=== PATIENT | male | born 1960 | race Caucasian/White ===

== ENCOUNTER → 2021-04-26 02:48 | Outpatient (CLI) | payer BC, SELFPAY ==
[2021-04-26 20:44] LABS: SARS-CoV-2 RNA PCR Negative
== END ==
PROVIDERS: PCP Family Medicine; Visit Provider Family Medicine
DX: Z20.822 Contact with and (suspected) exposure to COVID-19 (principal); R53.83 Other fatigue
CPT/HCPCS: C9803; U0003; U0005

== ENCOUNTER 2021-10-16 09:28 | Outpatient (CLI) | payer BC, SELFPAY ==
--- NOTE | ~2021-10-16 | XR_ITS ---
EXAMINATION: XR shoulder RT min 2V EXAM DATE: 10/16/2021 09:47 INDICATION: Right arm pain from throwing football. TECHNIQUE: The following right shoulder projections obtained: frontal projection with internal rotati on, frontal projection with external rotation, Grashey, and axillary (4+ views). There is no prior s tudy for comparison. FINDINGS: No evidence of right shoulder rotator cuff calcific tendinosis. There is mild glenohumer al joint, mild to moderate acromioclavicular joint primary osteoarthritis. There are no acute fractur es or dislocations identified. There is no subcutaneous gas. The soft tissue is unremarkable. Bayron rnotomy wires. IMPRESSION: Mild right glenohumeral, mild to moderate acromioclavicular osteoarthritis. Reviewed, dictated and finalized at location B. [employer] IMPRESSION: Mild right glenohumeral, mild to moderate acromioclavicular osteoar thritis.
== END 2021-10-16 09:29 | disposition home or self-care (01) ==
PROVIDERS: PCP Family Medicine; Visit Provider Family Medicine
DX: M25.511 Pain in right shoulder (principal); G89.29 Other chronic pain; M19.011 Primary osteoarthritis, right shoulder
CPT/HCPCS: 73030

== ENCOUNTER 2023-06-02 00:34 | Day surgery (SDC) | payer BC, SELFPAY ==
[2023-05-26 14:17] VITALS: BMI 31.4
[2023-06-02 12:54] VITALS: BP 116/96; PULSE 90; RESP 18; TEMP 35.8; O2SAT 97
--- NOTE | 2023-06-02 13:10 | WPDANESEPPF ---
Anes - Initial Pre Proc Eval Procedure: Operation Date: 06/02/23 14:00 Proposed Procedures p Colonoscopy - Ryan Singh MD Date/Time: 06/02/23 13:10 Surgeon: Ryan Singh MD Pre Op Diagnosis: hx of colon polyps Patient Data Age: 62 Gender: M Height: 1.7 m Weight: 84.4 kg Last Vital Signs Temp 96.4 F L 06/02/23 12:54 Pulse 90 06/02/23 12:54 Resp 18 06/02/23 12:54 BP 116/96 H 06/02/23 12:54 Pulse Ox 97 06/02/23 12:54 O2 Del Method Room Air 06/02/23 12:54 Allergies Allergy/AdvReac Type Severity Reaction Status Date / Time No Known Allergies Allergy Verified 06/02/23 12:51 Home Medications Medication Instructions Recorded Confirmed Type aspirin 81 mg tablet,delayed 81 mg PO DAILY 07/14/19 06/02/23 History release (Adult Low Dose Aspirin) nitroglycerin 400 mcg/spray 1 spray sublingual Q5M PRN chest 05/10/21 06/02/23 Rx translingual aerosol pain #4.1 grams rosuvastatin 40 mg tablet 40 mg PO DAILY 10/31/21 06/02/23 History bupropion HCl 150 mg 24 hr tablet, 150 mg PO QAM #90 tabs 07/01/22 06/02/23 Rx extended release finasteride 5 mg tablet 5 mg PO DAILY #90 tabs 07/01/22 06/02/23 Rx meloxicam 15 mg tablet 15 mg PO DAILY PRN pain #90 tabs 07/01/22 06/02/23 Rx metoprolol tartrate 25 mg tablet 25 mg PO BID #180 tabs 07/01/22 06/02/23 Rx fluticasone propionate 50 1 spray intranasal BID #48 grams 07/15/22 06/02/23 Rx mcg/actuation nasal spray,suspension (Flonase Allergy Relief) Patient hx anesthesia problems: none Family hx anesthesia problems: none Results Review: All pre-operative results and documents have been reviewed as part of the pre-operative evaluation. [facility] Past Medical History Medical History (Updated 03/06/23 @ 12:29 by Gerard Cano MD) BMI 32.0-32.9,adult Chronic pain in right shoulder (~08/2021) Fatigue Heart attack Heart disease Obesity (BMI 30.0-34.9) Seborrheic keratosis (~2021) right midback 0.3 x 0.6 cm Surgical History Surgical History History of heart bypass surgery Family History Family History Mother Cancer Grandparent Family history of liver disease, Onset Age: 61 Family history of arthritis, Onset Age: 78 Family history of malignant neoplasm Father Family history of chronic obstructive pulmonary disease, Onset Age: 67 Social History Social History (Updated 07/15/22 @ 09:29 by Victorina Munoz MA) Smoking status: Never smoker Alcohol intake: current Alcohol use details: rare use Substance use: never Substance use type: does not use Lack of Transportation: No Lack of Food: Never True Current Housing: I Have Housing Concerned About Future Housing: No Difficulty Paying Gas/Electric Bills: No Difficulty Paying for Meds: No Currently Unemployed: No Education: High School Diploma/GED Difficulty w/ Childcare or Family Care: No Living arrangements: alone Occupation/Education: occupation Additional occupation/education comments: Gate Person Gender identity (if verbalized by the patient): Male Spiritual care concerns: No Anes - Eval Final PreProcedure Day of Procedure 06/02/23 13:10 Patient weight: normal Heart: regular rate and rhythm Lungs: clear to auscultation Airway: Mallampati scale class II Neurological: alert and oriented Last oral intake: >/= 8 hours ASA classification: III Emergent: no Anesthetic plan: proceed Anesthesia type and monitoring: general GIVS and standard monitoring Results Review: All pre-operative results and documents have been reviewed as part of the pre-operative evaluation. Informed Consent: The patient's anesthetic plan and its attendant risks and benefits were discussed with the patient/family/POA. Questions were solicited and answers provided to the satisfaction of the patient/family/POA.
[2023-06-02] MEDS: LACTATED RINGERS 1,000 ML 150 ML IV CONT (13:13)
--- NOTE | 2023-06-02 13:35 | PM.HPGS ---
History of Present Illness History of Present Illness Consent: Risks, benefits, and alternatives have been discussed and questions answered. Patient agrees to proceed with procedure. Chief complaint: hx of colon polyps Narrative: Herberth Morley is a 62 year old male Presents for screening colonoscopy. Patient's current weight appetite and bowel movements are normal. Patient denies abdominal pain. He has had no bleeding. Family history noncontributory. Patient had this colon polyp 9 years ago. Most recent colonoscopy 2017 was unremarkable. Review of Systems Review of Systems: Review of systems noncontributory. [facility] Past Medical History Medical History (Updated 03/06/23 @ 12:29 by Gerard Cano MD) BMI 32.0-32.9,adult Chronic pain in right shoulder (~08/2021) Fatigue Heart attack Heart disease Obesity (BMI 30.0-34.9) Seborrheic keratosis (~2021) right midback 0.3 x 0.6 cm Surgical History Surgical History History of heart bypass surgery Family History Family History Mother Cancer Grandparent Family history of liver disease, Onset Age: 61 Family history of arthritis, Onset Age: 78 Family history of malignant neoplasm Father Family history of chronic obstructive pulmonary disease, Onset Age: 67 Social History Social History (Updated 07/15/22 @ 09:29 by Victorina Munoz MA) Smoking status: Never smoker Alcohol intake: current Alcohol use details: rare use Substance use: never Substance use type: does not use Lack of Transportation: No Lack of Food: Never True Current Housing: I Have Housing Concerned About Future Housing: No Difficulty Paying Gas/Electric Bills: No Difficulty Paying for Meds: No Currently Unemployed: No Education: High School Diploma/GED Difficulty w/ Childcare or Family Care: No Living arrangements: alone Occupation/Education: occupation 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 Gender identity (if verbalized by the patient): Male Spiritual care concerns: No Meds Home Medications and Allergies Home Medications Medication Instructions Recorded Confirmed Type aspirin 81 mg tablet,delayed 81 mg PO DAILY 07/14/19 06/02/23 History release (Adult Low Dose Aspirin) nitroglycerin 400 mcg/spray 1 spray sublingual Q5M PRN chest 05/10/21 06/02/23 Rx translingual aerosol pain #4.1 grams rosuvastatin 40 mg tablet 40 mg PO DAILY 10/31/21 06/02/23 History bupropion HCl 150 mg 24 hr tablet, 150 mg PO QAM #90 tabs 07/01/22 06/02/23 Rx extended release finasteride 5 mg tablet 5 mg PO DAILY #90 tabs 07/01/22 06/02/23 Rx meloxicam 15 mg tablet 15 mg PO DAILY PRN pain #90 tabs 07/01/22 06/02/23 Rx metoprolol tartrate 25 mg tablet 25 mg PO BID #180 tabs 07/01/22 06/02/23 Rx fluticasone propionate 50 1 spray intranasal BID #48 grams 07/15/22 06/02/23 Rx mcg/actuation nasal spray,suspension (Flonase Allergy Relief) Allergies Allergy/AdvReac Type Severity Reaction Status Date / Time No Known Allergies Allergy Verified 06/02/23 12:51 Vital Signs Vital Signs - 24 hr 06/02/23 12:54 Temperature 96.4 F L Pulse Rate 90 Respiratory Rate 18 Blood Pressure 116/96 H Pulse Oximetry 97 Oxygen Delivery Room Air Exam Narrative: Physical exam reveals patient to be alert. Vital signs stable. HEENT exam is unremarkable. Patient is anicteric. Lungs are clear to auscultation and percussion. Heart is without murmur or extra sounds. Abdomen bowel sounds are present soft nontender with no organomegaly. Digital external rectal exam normal. Assessment and Plan Assessment and plan (1) Polyp of colon: Qualifiers: Colon polyp type: unspecified Colon location: unspecified part of colon Qualified Code(s): K63.5 - Polyp of colon Code(s): K
[2023-06-02 14:08] VITALS: BP 106/76; PULSE 77; RESP 19; O2SAT 93
[2023-06-02 14:18] VITALS: BP 112/72; PULSE 76; RESP 20; O2SAT 95
[2023-06-02 14:28] VITALS: BP 111/77; PULSE 72; RESP 20; O2SAT 96
== END 2023-06-02 14:40 | disposition home or self-care (01) ==
PROVIDERS: PCP Family Medicine; Visit Provider Internal Medicine Gastroenterology
PROC: 0DJD8ZZ Inspection of Lower Intestinal Tract, Via Natural or Artificial Opening Endoscopic (ICD-10-PCS; CPT 45378; principal; 2023-06-02 14:00)
DX: Z12.11 Encounter for screening for malignant neoplasm of colon (principal); K63.5 Polyp of colon; K64.8 Other hemorrhoids; K57.30 Diverticulosis of large intestine without perforation or abscess without bleeding; R53.83 Other fatigue; Z79.82 Long term (current) use of aspirin; Z95.1 Presence of aortocoronary bypass graft; I25.2 Old myocardial infarction; I51.9 Heart disease, unspecified
CPT/HCPCS: 45385; 88305; J2704; J7120